=== PATIENT | male | born 1955 | race Caucasian/White ===

== ENCOUNTER → 2020-04-20 | Outpatient (CLI) | payer BC ==
[~2020-04-20] MED LIST: ASPIRIN EC81 M1 PO; COQ-10100 MG PO; MULTIVITAMINS PO; NORCO 5-325 TA1 EACH PO; OMEGA-31000 MG PO; PRAVASTATIN SOD20 MG PO; SAW PALMETTO160 M1 PO; VITAMINC500 PO; [UNRECOGNIZED DRUG - OTHER] PO
== END ==
LOC: SJCVCIMAG 06:34
PROVIDERS: ATTEND Internal Medicine
DX: I08.8 Other rheumatic multiple valve diseases (principal); I11.9 Hypertensive heart disease without heart failure; Z87.891 Personal history of nicotine dependence

== ENCOUNTER → 2020-11-12 | Outpatient (CLI) | payer BC | LOC: SJCVCIMAG 09:33 | PROVIDERS: ATTEND Internal Medicine | DX: I37.1 Nonrheumatic pulmonary valve insufficiency (principal); I11.9 Hypertensive heart disease without heart failure ==

== ENCOUNTER → 2021-07-19 | Outpatient (CLI) | payer BC | LOC: SJCVCIMAG 13:24 | PROVIDERS: ATTEND Internal Medicine | DX: I51.7 Cardiomegaly (principal); I71.2 Thoracic aortic aneurysm, without rupture; E78.5 Hyperlipidemia, unspecified; Z87.891 Personal history of nicotine dependence; Z79.82 Long term (current) use of aspirin; Z79.899 Other long term (current) drug therapy ==